=== PATIENT | male | born 1975 | race Caucasian/White ===

== ENCOUNTER 2018-05-17 13:53 | Emergency (ER) | payer OTHER ==
[~2018-05-17] VITALS: Ht 165.1 cm; Wt 81.2 kg
[~2018-05-17 13:53] MED LIST: ACET500T33 PO; IBUP-1227 PO; TAMAFLU
[2018-05-17] MEDS ORDERED: PRED20TA PO (14:18)
--- NOTE | 2018-05-17 14:19 | PHYS DOC ---
Past History Past Medical History: No Pertinent History, Other Past Surgical History: Appendectomy Smoking: Non-smoker Alcohol Use: Rarely Drug Use: None Adult General Chief Complaint Chief Complaint: SKIN PROBLEM HPI HPI Patient is a 42-year-old male who presents to the emergency department for evaluation. 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 He states he has tried multiple [id number] regimens without improvement in his symptoms. He has some mild involvement on his upper thighs and abdomen, but the primary site as his arms bilaterally. He denies any difficulty breathing, fevers, or chills. He has not had any significant improvement with his [id number] regimens. Review of Systems Review of Systems Constitutional: Denies fever or chills [] Eyes: Denies change in visual acuity, redness, or eye pain [] HENT: Denies nasal congestion or sore throat [] Respiratory: Denies cough or shortness of breath [] GI: Denies abdominal pain, nausea, vomiting, bloody stools or diarrhea [] : Denies dysuria or hematuria [] Musculoskeletal: Denies back pain or joint pain [] Neurologic: Denies headache, focal weakness or sensory changes [] Allergies Allergies Allergies Coded Allergies Type Severity Reaction Last Updated Verified cortisone acetate Allergy Nausea and Vomiting 08/23/13 Yes Physical Exam Physical Exam PHYSICAL EXAM: CONSTITUTIONAL: Well developed, well nourished HEAD: normocephalic, atraumatic EENT: PERRL, EOMI. Conjunctivae normal color, sclerae non-icteric; moist mucous membranes. NECK: Supple, non-tender; no meningismus. LUNGS: Lungs CTA, breathing even and unlabored. Normal air movement. HEART: Regular rate and rhythm, no murmur CHEST: No deformity; non-tender ABDOMEN: The abdomen is soft, and non-tender, no masses or bruits. EXTREM: Normal ROM; no deformity, no calf tenderness. Normal pulses palpable in all extremities. There is no pedal edema. SKIN: There is a vesicular papular rash on an erythematous base, scattered on the forearms and hands bilaterally. The rash is pruritic. There are a few very faint, minor lesions on the anterior abdomen on the upper thighs. There are no other skin lesions noted, no other rash; no diaphoresis NEURO: Alert; normal speech and cognition; CN's grossly intact; strength grossly intact without focal deficit. BACK: No CVA TTP. EKG EKG [] Radiology/Procedures Radiology/Procedures [] Dragon Disclaimer Dragon Disclaimer This electronic medical record was generated, in whole or in part, using a voice recognition dictation system. Departure Departure: Impression: Primary Impression: Poison sarah dermatitis Disposition: HOME, SELF-CARE Condition: STABLE Referrals: KRISTOPHER MAURICE MD (PCP) Patient Instructions: Poison Sarah Scripts Prednisone (PREDNISONE) 20 Mg Tablet 1 TAB PO DAILY, #1 TAB Prednisone 20 mg tablets Take 3 tablets daily for 7 days, Then take 2 tablets daily for 3 days, then take 1 tablet daily for 3 days, And then take one half tablet daily for 4 days. Then stop. Dispense a sufficient quantity of tablets. Prov: DENNIS BRYANT MD 05/17/18 DENNIS BRYANT MD May 17, 2018 14:19
[2018-05-17 14:30] VITALS: BP 165/83
== END 2018-05-17 14:30 | disposition home or self-care (01) ==
LOC: ER 13:53
DX: L23.7 Allergic contact dermatitis due to plants, except food (principal); Z88.8 Allergy status to other drugs, medicaments and biological substances
CPT/HCPCS: 99283

== ENCOUNTER 2018-05-30 11:53 | Emergency (ER) | payer SELFPAY ==
[~2018-05-30] VITALS: Ht 165.1 cm; Wt 81.2 kg
[~2018-05-30 11:53] MED LIST changes: +PRED20TA PO
[2018-05-30] MEDS ORDERED: IV NORMAL SALINE 1,000ML 1,000 ML IV ONE (12:00)
[2018-05-30] MEDS ORDERED: ONDANSETRON PF 4 MG/2 ML VIAL. IV ONE (12:00)
--- NOTE | 2018-05-30 12:10 | PHYS DOC ---
Past History Past Medical History: No Pertinent History, Other Past Surgical History: Appendectomy Smoking: Non-smoker Alcohol Use: None Drug Use: None Adult General Chief Complaint Chief Complaint: FLANK PAIN HPI HPI 42-year-old male presents with sudden onset of right flank and back pain. 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 Pain intensified over the next couple of minutes. The pain was significant enough that made the patient feel nauseous. He went into the bathroom to vomit but the pain spiked and brought him to his knees. Since then, the patient is become diaphoretic and continues to have pain in this area. He is still nauseated. He also states a right hand and lower arm numbness which she describes as a pins and needles tingling sensation. The patient never had pain like this before. He had a cardiac workup one year ago after having pneumonia. Patient denies a history of back problems or surgeries. He is generally healthy taking no daily medications. He denies chest pain or shortness of breath. He denies fever. Review of Systems Review of Systems Constitutional: Denies fever or chills [] Eyes: Denies change in visual acuity, redness, or eye pain [] HENT: Denies nasal congestion or sore throat [] Respiratory: Denies cough or shortness of breath [] Cardiovascular: No additional information not addressed in HPI [] GI: Nausea, vomiting. No bloody stools or diarrhea [] : Denies dysuria or hematuria [] Musculoskeletal: Right flank pain [] Integument: Denies rash or skin lesions [] Neurologic: Denies headache, focal weakness or sensory changes [] Endocrine: Denies polyuria or polydipsia [] All other systems were reviewed and found to be within normal limits, except as documented in this note. Allergies Allergies Allergies Coded Allergies Type Severity Reaction Last Updated Verified cortisone acetate Allergy Nausea and Vomiting 08/23/13 Yes Physical Exam Physical Exam Constitutional: Well developed, well nourished, moderate acute distress, non- toxic appearance. [] HENT: Normocephalic, atraumatic, bilateral external ears normal, oropharynx moist, no oral exudates, nose normal. [] Eyes: PERRLA, EOMI, conjunctiva normal, no discharge. [] Neck: Normal range of motion, no tenderness, supple, no stridor. [] Cardiovascular:Heart rate regular rhythm, no murmur [] Lungs & Thorax: Bilateral breath sounds clear to auscultation [] Abdomen: Bowel sounds normal, soft, no tenderness, no masses, no pulsatile masses. [] Skin: Warm, dry, no erythema, no rash. [] Back: Right sided CVA tenderness. [] Extremities: Decreased sensation to touch right arm below the elbow.[] Neurologic: Alert and oriented X 3, normal motor function, normal sensory function, no focal deficits noted. [] Psychologic: Affect normal, judgement normal, mood normal. [] EKG EKG Sinus rhythm, rate 68, no ST elevations or depressions.[] Radiology/Procedures Radiology/Procedures [] Impressions: Examination: CT of the abdomen and pelvis without contrast HISTORY: History of right flank pain COMPARISON: 09/20/2005 TECHNIQUE: Axial CT images of the abdomen pelvis were performed without contrast. Coronal and sagittal reformats are performed Exposure: One or more of the following individualized dose reduction techniques were utilized for this examination: 1. Automated exposure control 2. Adjustment of the mA and/or kV according to patient size 3. Use of iterative reconstruction technique FINDINGS: The bibasilar lungs are clear. No evidence of free air identified in the abdomen. The visualized liver, spleen, adrenals grossly appears unremarkable. The gallbladder is mildly distended. The stomach is mildly distended. The visualized pancreas grossly appears unremarkable. The small bowel is nondilated. Feces and gas noted in the colon. Urinary bladder is mildly distended. Mild right-sided hydronephrosis and hydroureter identified. 5 mm calculus identified at the right ureterovesical junction. Mild degenerative changes lumbar spine. IMPRESSION: 1. 5 mm calculus identified in the right ureterovesical junction causing mild right-sided hydronephrosis and hydroureter. Electronically signed by: Zach Napoles MD (05/30/2018 12:50 PM) [facility] DICTATED AND SIGNED BY: ZACH NAPOLES MD DATE: 05/30/18 [id number] CC: RISHABH VILLARREAL DO; KRISTOPHER MAURICE MD Course & Med Decision Making Course & Med Decision Making Pertinent Labs and Imaging studies reviewed. (See chart for details) The patient's labs are unremarkable. His urinalysis is negative for infection. His CT shows a 5 mm calculus at the right ureterovesicular junction. The patient required 2 mg of Dilaudid his pain under control. I will not attempt to convert him to oral pain medication with Zuni 7.5/325. I discussed the case with the urologist, Dr. Morales and he recommended Flomax and discharging the patient with pain medication. Patient is directed to call his office and make an appointment in case the stone does not pass in the next couple of days. Dragon Disclaimer Dragon Disclaimer This electronic medical record was generated, in whole or in part, using a voice recognition dictation system. Departure Departure: Referrals: KRISTOPHER MAURICE MD (PCP) Scripts Tamsulosin Hcl (FLOMAX) 0.4 Mg Cap.er.24h 1 CAP PO DAILY, #30 CAP 11 Refills Prov: RISHABH VILLARREAL DO 05/30/18 Hydrocodone Bit/Acetaminophen (NORCO 7.5-325 TABLET) 1 Each Tablet 0.5-1 TAB PO PRN Q6HRS PRN for PAIN, #10 TAB 0 Refills Prov: RISHABH VILLARREAL DO 05/30/18 RISHABH VILLARREAL DO May 30, 2018 12:09
[2018-05-30 12:15] LABS: BASO # 0.1 x10^3/uL (0.0-0.2); BASO % 1 % (0-3); EOS # 0.3 x10^3/uL (0.0-0.7); EOS % 3 % (0-3); HEMATOCRIT 53.1 % (39.0-53.0); HEMOGLOBIN 18.1 g/dL (13.0-17.5); LYMPH # 2.9 x10^3/uL (1.0-4.8); LYMPH % 28 % (24-48); MEAN CORPUSCULAR HEMOGLOBIN 30 pg (25-35); MEAN CORPUSCULAR HGB CONC 34 g/dL (31-37); MEAN CORPUSCULAR VOLUME 88 fL (79-100); MONO # 0.7 x10^3/uL (0.0-1.1); MONO % 7 % (0-9); NEUT # 6.3 x10^3uL (1.8-7.7); NEUT % 61 % (31-73); PLATELET COUNT 315 x10^3/uL (140-400); RED BLOOD COUNT 6.04 x10^6/uL (4.30-5.70); RED CELL DISTRIBUTION WIDTH 13.4 % (11.5-14.5); WHITE BLOOD COUNT 10.4 x10^3/uL (4.0-11.0)
[2018-05-30] MEDS ORDERED: HYDROmorphone PF 1 MG/ML DISP.SYRIN IV ONE ×2 (12:15→13:15)
[2018-05-30 12:26] LABS: ALBUMIN 4.2 g/dL (3.4-5.0); ALBUMIN/GLOBULIN RATIO 1.1 (1.0-1.7); CALCIUM 10.3 mg/dL (8.5-10.1); CREATININE 1.3 mg/dL (0.7-1.3); TOTAL BILIRUBIN 0.6 mg/dL (0.2-1.0); TOTAL PROTEIN 7.9 g/dL (6.4-8.2)
[2018-05-30] MEDS ORDERED: KETOROLAC 30 MG/ML VIAL. IV ONE (12:45)
--- NOTE | 2018-05-30 12:54 | RAD ---
Examination: CT of the abdomen and pelvis without contrast HISTORY: History of right flank pain COMPARISON: 09/20/2005 TECHNIQUE: Axial CT images of the abdomen pelvis were performed without contrast. Coronal and sagittal reformats are performed Exposure: One or more of the following individualized dose reduction techniques were utilized for this examination: 1. Automated exposure control 2. Adjustment of the mA and/or kV according to patient size 3. Use of iterative reconstruction technique FINDINGS: The bibasilar lungs are clear. No evidence of free air identified in the abdomen. The visualized liver, spleen, adrenals grossly appears unremarkable. The gallbladder is mildly distended. The stomach is mildly distended. The visualized pancreas grossly appears unremarkable. The small bowel is nondilated. Feces and gas noted in the colon. Urinary bladder is mildly distended. Mild right-sided hydronephrosis and hydroureter identified. 5 mm calculus identified at the right ureterovesical junction. Mild degenerative changes lumbar spine. IMPRESSION: 1. 5 mm calculus identified in the right ureterovesical junction causing mild right-sided hydronephrosis and hydroureter. Electronically signed by: Zach Napoles MD (05/30/2018 12:50 PM) [facility]
[2018-05-30 13:10] LABS: PLT ESTIMATE ADEQUATE (ADEQUATE)
[2018-05-30 13:20] LABS: BILIRUBIN,URINE NEG (NEG); CLARITY,URINE HAZY; COLOR,URINE AMBER; GLUCOSE,URINE NEG (NEG)
[2018-05-30 13:21] LABS: BACTERIA,URINE 0 /HPF (0-FEW); NITRITE,URINE NEG (NEG); SQUAMOUS EPITHELIAL CELL,UR OCC /LPF; UROBILINOGEN,URINE 0.2 mg/dL (0.2 mg/dL); WBC,URINE 0 /HPF (0-4)
[2018-05-30] MEDS ORDERED: HYDROcodone/APAP 7.5/325MG 1 TAB TABLET PO ONE (14:00)
[2018-05-30] MEDS ORDERED: HYDR-965 PO (14:24)
[2018-05-30 14:25] VITALS: BP 113/69
[2018-05-30] MEDS ORDERED: TAMS0.4C97 PO (14:27)
--- NOTE | 2018-05-30 18:23 | EKG ---
[address] [address] Test Date: 2018-05-30 Test Time: 12:06:49 Pat Name: AKBAR FREITAS Department: Room: Gender: M Chief Embalmer: : 1975 Requested By: RISHABH VILLARREAL Order Number: [id number] Reading MD: Patricio Angel MD Measurements Intervals [place] Rate: 68 P: 0 OK: 138 QRS: 33 QRSD: 88 T: 19 QT: 394 QTc: 419 Interpretive Statements SINUS RHYTHM Electronically Signed On 05-31-2018 14:01:49 CDT by Patricio Angel MD
== END 2018-05-30 14:50 | disposition home or self-care (01) ==
LOC: ER 11:53
DX: N13.2 Hydronephrosis with renal and ureteral calculous obstruction (principal); R11.2 Nausea with vomiting, unspecified; Z90.89 Acquired absence of other organs; Z88.8 Allergy status to other drugs, medicaments and biological substances
CPT/HCPCS: 36415; 74176; 80053; 81001; 82947; 85025; 93005; 96361; 96374; 96375; 96376; 99285; J1170; J1885; J2405; J7030

== ENCOUNTER 2021-08-14 23:46 | Emergency (ER) | payer OTHER ==
[~2021-08-14] VITALS: Ht 165.1 cm; Wt 80.0 kg
[~2021-08-14 23:46] MED LIST changes: +HYDR-3166 PO; -IBUP-1227 PO; +IBUP-1673 PO; +TAMS0.4C97 PO
--- NOTE | 2021-08-15 00:39 | PHYS DOC ---
Past History Past Medical History: No Pertinent History, Other Past Surgical History: Appendectomy Smoking: Non-smoker Alcohol Use: None Drug Use: None Adult General [facility] HPI Medicines today. Denies any recent traumas, travels, chest pain, shortness of breath, abdominal pain, nausea, vomiting, diarrhea, dysuria, hematuria or blood in the stool.Patient is a 45-year-old male, Covid positive symptomatic presents with a chief complaint of fever, body aches, fatigue and a cough. Review of Systems Review of Systems Review of systems otherwise unremarkable except noted in HPI Allergies Allergies Allergies Coded Allergies Type Severity Reaction Last Updated Verified cortisone acetate Allergy Unknown Nausea and Vomiting 08/14/21 Yes Physical Exam Physical Exam Constitutional: Well developed, well nourished, no acute distress, non-toxic appearance. [] HENT: Normocephalic, atraumatic, bilateral external ears normal, oropharynx moist, no oral exudates, nose normal. [] Eyes: conjunctiva normal, no discharge. [] Neck: Normal range of motion, no tenderness, supple, no stridor. [] Cardiovascular:Heart rate regular rhythm, no murmur [] Lungs & Thorax: Bilateral breath sounds clear to auscultation [] Abdomen: Bowel sounds normal, soft, no tenderness, no masses, no pulsatile masses. [] Skin: Warm, dry, no erythema, no rash. [] Back: No tenderness, no CVA tenderness. [] Extremities: No tenderness, no cyanosis, no clubbing, ROM intact, no edema. [] Neurologic: Alert and oriented X 3, normal motor function, normal sensory function, no focal deficits noted. [] Psychologic: Affect normal, judgement normal, mood normal. [] EKG EKG [] Radiology/Procedures Radiology/Procedures [] Heart Score C/O Chest Pain: No Risk Factors: Risk Factors: DM, Current or recent (<one month) smoker, HTN, HLP, family history of CAD, obesity. Risk Scores: Risk Factors: DM, Current or recent (<one month) smoker, HTN, HLP, family history of CAD, obesity. Course & Med Decision Making Course & Med Decision Making Patient is a Covid positive male who presents with multiple symptoms Vital signs notable for tachycardia and tachypnea. Physical exam noted above. Given medicines for symptom control. Chest x-ray suggestive of pneumonia. Started on antibiotics in the ED. Discussed all findings with patient. Advised on symptom management at home. Advised to follow-up in the morning with her primary care physician. Gave strict return precautions to the ED. Patient grateful, verbalized understanding and agreed with plan of discharge. [] Dragon Disclaimer Dragon Disclaimer This electronic medical record was generated, in whole or in part, using a voice recognition dictation system. Departure Departure: Impression: Primary Impression: Viral syndrome Disposition: HOME / SELF CARE / HOMELESS Condition: GOOD Referrals: JEREMÍAS RIVERA (PCP) Patient Instructions: Viral Syndrome Additional Instructions: You have been diagnosed with COVID-19. It is an infection caused by a new type of coronavirus. COVID-19 will cause cold-like or mild flu symptoms in most. It can cause more severe symptoms like problems breathing in some. There is no treatment for COVID-19. The body will clear the infection over time. Self-care will help to ease discomfort. Steps to Take: Self-Care Rest as needed. Healthy habits may help you feel better. Steps include: Choose healthy foods including fruits and vegetables. Drink water throughout the day. Get plenty of sleep each night. If you smoke, try to quit. It may ease breathing. Avoid alcohol. Keep Others Healthy The virus can spread to others. Droplets are released every time you sneeze or cough. The droplets can get into the mouth, nose, or eyes of people near you and lead to infection. To lower the chances of spreading COVID-19 to others: Stay at home until your doctor has said it is safe to leave. If you tested positive this will mean staying isolated until both of the following are true: At least 7 days have passed since the start of illness. You are free of fever for at least 72 hours without the use of medicine. During this time: - Avoid public areas, events, or transportation. Do not return to work or [employer] until your doctor has said it is safe to do so. - Call ahead if you need to go to a medical center. Let them know you may have COVID-19. It will help them guide you where to go. They may also ask you to wear a facemask when you come to the office. - If you call for emergency medical services, let them know you may have COVID- 19. While at home: - Try to avoid close contact with others. Stay about 6 feet away. - If possible, spend most of your time in a separate room from others. - Use a face mask if you will be in close contact with others such as sharing a room or vehicle. - Have someone wipe down common surfaces in the home. Use household online marketing manager every day on areas like doorknobs, counters, or sinks. - Cough or sneeze into a tissue. Throw the tissue away right after use. If a tissue is not available, cough or sneeze into your elbow. - Wash your hands often. Wash them after sneezing or coughing. Use soap and water and wash for at least 20 seconds. Alcohol based hand guide rail cleaner can be used if soap and water is not available. - Do not prepare food for others. Avoid sharing personal items like forks, spoons, or toothbrushes. - Avoid close contact with pets while you are sick. There is no evidence of the virus passing to pets. This is a safety step until more is known about this virus. Isolation can be frustrating. Social interaction can help. Keep in touch with friends and family through phone and tech options. You can still interact with others in your home, just keep a safe distance of about 6 feet. Follow-up: Your doctors office will check in with you to see if there are any changes in your health. You may be asked to keep track of symptoms to share with them. They will also let you know when you are clear to be in public again. Problems to Look Out For: Contact your doctor if your recovery is not going as you expect. Get emergency care if you have problems such as: - Trouble breathing - Nonstop chest pain or pressure - Changes in awareness, confusion, or problems waking - Lips or face have bluish color - Worsening of symptoms If you think you have an emergency, call for emergency medical services right away. [facility] taken [facility] [facility]KPATR[facility] MD Aug 15, 2021 00:39
[2021-08-15] MEDS ORDERED: guaiFENesin/CODEINE 100mg/10mg 5 ML LIQUID PO PRN (01:00)
[2021-08-15] MEDS ORDERED: IBUPROFEN 600 MG TABLET. PO ONE (01:00)
[2021-08-15] MEDS ORDERED: diphenhydrAMINE HCL 25 MG CAPSULE PO ONE (01:00)
[2021-08-15] MEDS ORDERED: ACETAMINOPHEN 500 MG TABLET PO ONE (01:00)
[2021-08-15] MEDS ORDERED: LEVO500T9 PO (01:52)
[2021-08-15 02:15] VITALS: BP 132/81
[2021-08-15] MEDS ORDERED: levoFLOXacin 500 MG TABLET PO ONE (02:30)
--- NOTE | 2021-08-15 02:52 | RAD ---
XR CHEST 1V INDICATION: Reason: cough, covid + / Spl. Instructions: / History: . COMPARISON STUDY: None. FINDINGS: Lungs: Low lung volume. No pulmonary mass or consolidation. The tracheobronchial tree and hilar struc tures are normal. Pleura: No pleural effusion or pneumothorax. Heart and Mediastinum: The cardiomediastinal silhouette is normal. The great vessels of the thorax ar e normal. IMPRESSION: No consolidation. Electronically signed by: Sebastian Almaguer MD (08/15/2021 2:49 AM) [facility]
== END 2021-08-15 02:25 | disposition home or self-care (01) ==
LOC: ER 23:46
DX: U07.1 COVID-19 (principal); B34.9 Viral infection, unspecified; Z88.8 Allergy status to other drugs, medicaments and biological substances
CPT/HCPCS: 71045; 99284; Q0163

== ENCOUNTER 2021-08-17 01:04 | Emergency (ER) | payer OTHER ==
[~2021-08-17] VITALS: Ht 165.1 cm; Wt 80.0 kg
[~2021-08-17 01:04] MED LIST changes: +LEVO500T9 PO
--- NOTE | 2021-08-17 01:13 | PHYS DOC ---
Past History Past Medical History: No Pertinent History, Other (KALYAN CHAPPELL MD) Past Surgical History: Appendectomy, Cholecystectomy, Other Additional Past Surgical Histo: kidney stone removal (KALYAN CHAPPELL MD) Smoking: Non-smoker Alcohol Use: None Drug Use: None (KALYAN CHAPPELL MD) General Adult HPI: HPI: ".. I got up to go to bathroom.. and when I went back I got dizzy and fell.. I did have some visual changes.. like things floating across.. but it would go away. .. and come back.. it was in both eyes.. I was diagnosis of COVID a few days ago.. been having really high fevers.. I been seeing Dr. Rand Cunningham.. she put me on some breathing treatments.. I was here 2 days ago .. they started me on some antibiotics...".. " I got my flu vaccination.. just did not think I needed the COVID vaccination.. ".. " To day.. I ve had this headache.. " Patient is a 45 year old male who presents with above hx and complaints decreased vision and near syncope after going to the bathroom. Diagnosis of COVID on . Follows with Dr. Reza. Pt. visual acuity 20/40 Lt, 20/50 Rt. , 20/40 both without glasses. No obvious field defect. Some floater noted, but fundus relatively benign. Extraocular muscles intact. (KALYAN CHAPPELL MD) Review of Systems: Review of Systems: Constitutional: Complaints of fever or chills Eyes: Denies change in visual acuity HENT: Complains of nasal congestion and sore throat Respiratory: Complaints of cough or shortness of breath Cardiovascular: Denies chest pain or edema GI: Denies abdominal pain, vomiting, bloody stools or diarrhea . Complaints of nausea : Denies dysuria Musculoskeletal: Complains of myalgia arthralgia and malaise Integument: Denies rash Neurologic: Complains of frontal headache, focal weakness or sensory changes. Complains of generalized weakness and fatigue Endocrine: Denies polyuria or polydipsia Lymphatic: Denies swollen glands Psychiatric: Denies depression or anxiety (KALYAN CHAPPELL MD) Family History: Family History: Noncontributory to presentation (KALYAN CHAPPELL MD) Current Medications: Current Meds: See nursing for home meds (KALYAN CHAPPELL MD) Allergies: Allergies: Allergies Coded Allergies Type Severity Reaction Last Updated Verified cortisone acetate Allergy Unknown Nausea and Vomiting 08/14/21 Yes (KALYAN CHAPPELL MD) Physical Exam: PE: Constitutional: Moderate acute distress, non-toxic appearance. [] HENT: Normocephalic, atraumatic, bilateral external ears normal, oropharynx moist, postnasal drainage and mild injection pharynx no oral exudates, nose swollen turbinates clear rhinorrhea tenderness over maxillary and frontal sinuses on percussion. Eyes: PERRLA, EOMI, conjunctiva normal, no discharge. Fundi exam somewhat limited but no obvious bleed or swelling optic disc. No field deficits appreciated. Did appreciate a few floaters Neck: Normal range of motion, no tenderness, supple, no stridor. Cardiovascular: Tachycardia heart rate regular rhythm, no murmur [] Lungs & Thorax: Bilateral breath sounds equal apex with scattered wheezes on auscultation [] Abdomen: Bowel sounds hyperactive, soft, no tenderness, no masses, no pulsatile masses. Old surgery scars. Skin: Warm, dry, no erythema, no rash. [] Back: No tenderness, no CVA tenderness. [] Extremities: No tenderness, no cyanosis, no clubbing, ROM intact, no edema. [No cording appreciated Neurologic: Alert and oriented X 3, normal motor function, normal sensory function, no focal deficits noted. [] Psychologic: Affect anxious, judgement normal, mood normal. [] (KALYAN CHAPPELL MD) EKG: EKG: My interpretation EKG shows a sinus tachycardia 106 bpm. No findings of acute STEMI of contralateral changes. Time of EKG is 0459 hrs. [] (KALYAN CHAPPELL MD) Radiology/Procedures: Radiology/Procedures: [address] [address] IMAGING REPORT Signed PATIENT: AKBAR FREITAS ACCOUNT: [id number] : 1975 LOCATION: ER AGE: 45 SEX: M EXAM STATUS: REG ER ORD. PHYSICIAN: KALYAN CHAPPELL MD REASON: dyspnea, COvid PROCEDURE: PORTABLE CHEST 1V Study: XR CHEST 1V Indication: Dyspnea. Covid. Comparison: 08/15/2021 Findings: Increasing infiltrates with a basilar predilection. No pleural effusion or pneumothorax. Within normal limits cardiomediastinal silhouette. Low lung volumes with a component of atelectasis. Impression: Increasing airspace infiltrates from the 08/15/2021 comparison likely an atypical/viral pneumonia. Electronically signed by: JOSELIN PARMAR MD (08/17/2021 7:28 AM) [id number] DICTATED AND SIGNED BY: JOSELIN PARMAR MD DATE: 08/17/21726 CC: KALYAN CHAPPELL MD; JEREMÍAS REZA ~MTH0 0 [][address] [address] IMAGING REPORT Signed PATIENT: AKBAR FREITAS ACCOUNT: [id number] : 1975 LOCATION: ER AGE: 45 SEX: M EXAM STATUS: REG ER ORD. PHYSICIAN: KALYAN CHAPPELL MD REASON: dizzy, near syncope, daniels, visual changes. PROCEDURE: CT HEAD WO CONTRAST STUDY: CT head without contrast INDICATION: Dizziness. Near syncope. Headache. Visual changes. COMPARISON: None. TECHNIQUE: Axial CT imaging through the head without the use of intravenous contrast. Sagittal and coronal reformats were obtained. One or more of the following individualized dose reduction techniques were utilized for this examination: 1. Automated exposure control 2. Adjustment of the mA and/or kV according to patient size 3. Use of iterative reconstruction technique. FINDINGS: No acute intracranial hemorrhage. No mass effect, midline shift or hydrocephalus. Shannon-white matter differentiation is maintained. Intact calvarium. Mucosal thickening and fluid within both maxillary sinuses. Mucosal thickening involving the ethmoidal air cells and sphenoid sinus. IMPRESSION: 1. No acute intracranial abnormality by CT. 2. Paranasal sinus mucosal thickening and fluid within the maxillary sinuses which could indicate active sinusitis. Correlate with patient's symptoms. Electronically signed by: JOSELIN PARMAR MD (08/17/2021 7:31 AM) [id number] DICTATED AND SIGNED BY: JOSELIN PARMAR MD DATE: 08/17/21728 CC: KALYAN CHAPPELL MD; JEREMÍAS REZA ~[facility] 0 (KALYAN CHAPPELL MD) Impressions: STUDY: CT head without contrast INDICATION: Dizziness. Near syncope. Headache. Visual changes. COMPARISON: None. TECHNIQUE: Axial CT imaging through the head without the use of intravenous contrast. Sagittal and coronal reformats were obtained. One or more of the following individualized dose reduction techniques were utilized for this examination: 1. Automated exposure control 2. Adjustment of the mA and/or kV according to patient size 3. Use of iterative reconstruction technique. FINDINGS: No acute intracranial hemorrhage. No mass effect, midline shift or hydrocephalus. Shannon-white matter differentiation is maintained. Intact calvarium. Mucosal thickening and fluid within both maxillary sinuses. Mucosal thickening involving the ethmoidal air cells and sphenoid sinus. IMPRESSION: 1. No acute intracranial abnormality by CT. 2. Paranasal sinus mucosal thickening and fluid within the maxillary sinuses which could indicate active sinusitis. Correlate with patient's symptoms. Electronically signed by: JOSELIN PARMAR MD (08/17/2021 7:31 AM) [id number] DICTATED AND SIGNED BY: JOSELIN PARMAR MD DATE: 08/17/21728 CC: KALYAN CHAPPELL MD; JEREMÍAS REZA ~[facility]0 0 Study: CT CHEST WITH CONTRAST - PULMONARY ANGIOGRAM History: Dyspnea. Covid. Comparison: No prior chest CT. Technique: Helical CT of the chest performed after the administration of 100 cc Omnipaque 350 intravenous contrast and timed for angiographic evaluation of the pulmonary arteries per PE protocol. Coronal and sagittal 3D MIP reformations were obtained. One or more of the following individualized dose reduction techniques were utilized for this examination: 1. Automated exposure control 2. Adjustment of the mA and/or kV according to patient size 3. Use of iterative reconstruction technique. Findings: Pulmonary Arteries: No main, lobar or segmental pulmonary embolism. Heart/Systemic Vasculature: No aortic aneurysm or dissection. Patent visualized great vessels. Mediastinum: No lymphadenopathy by size criteria. Lungs: Multifocal airspace infiltrates much of which are groundglass and peripherally distributed. Superimposed atelectasis at the lower lungs. Patent central airways. No pleural effusion. Neck/Axilla/Body Wall: No significant finding. Upper Abdomen: Well-formed stool throughout the visualized colon. Bones: No acute or aggressive abnormality. Mild scattered degenerative/chronic findings. Miscellaneous: None. IMPRESSION: 1. No main, lobar or segmental pulmonary embolism. 2. Bilateral airspace infiltrates with a distribution often seen with an atypical/viral pneumonia. Electronically signed by: JOSELIN PARMAR MD (08/17/2021 7:36 AM) [id number] DICTATED AND SIGNED BY: JOSELIN PARMAR MD DATE: 08/17/21730 CC: KALYAN CHAPPELL MD; JEREMÍAS REZA ~MTH0 0 (RISHABH VILLARREAL DO) Heart Score: C/O Chest Pain: Yes HEART Score for Chest Pain: HEART Score for Chest Pain Response (Comments) Value History Slighlty/Non-Suspicious 0 ECG Normal 0 Age >45 - < 65 1 Risk Factors 1 or 2 Risk Factors 1 Troponin < Normal Limit 0 Total 2 Risk Factors: Risk Factors: DM, Current or recent (<one month) smoker, HTN, HLP, family history of CAD, obesity. Risk Scores: Score 0 - 3: 2.5% MACE over next 6 weeks - Discharge Home Score 4 - 6: 20.3% MACE over next 6 weeks - Admit for Clinical Observation Score 7 - 10: 72.7% MACE over next 6 weeks - Early Invasive Strategies (KALYAN CHAPPELL MD) C/O Chest Pain: N/A (RISHABH VILLARREAL DO) Course & Med Decision Making: Course & Med Decision Making Pertinent Labs and Imaging studies reviewed. (See chart for details) Continue with Zithromax 250-day. Continue MDI 2 puffs 4 times a day. Practice incentive spirometry. Follow-up primary care. Monitor oxygen saturations. Must get adequate hydration. Follow-up ophthalmology of choice call in morning for follow-up. [] Patient endorsed to Dr. Villarreal at shift change. CT pending at shift change. Impression: 1. Viral syndrome-Covid infection 2. Covid pneumonia-(overall infiltrates worse on x-ray today 3. Near syncope 4. Complaints of vision changes 5. Sinusitis- maxillar (KALYAN CHAPPELL MD) Course & Med Decision Making The patient's labs are unremarkable. His urinalysis is negative for infection. The chest x-ray shows worsening bilateral infiltrates consistent with COVID-19. CT of the head is negative for hemorrhage. CT angiogram of the chest shows no pulmonary embolus but also shows bilateral infiltrates consistent with Covid. The patient is maintaining 92% or better oxygen saturation on room air. Heart rate is normal and blood pressure is normal. The patient is already on appropriate treatments from his PCP. He is stable for discharge at this time. (RISHABH VILLARREAL DO) Dragon Disclaimer: Dragon Disclaimer: This electronic medical record was generated, in whole or in part, using a voice recognition dictation system. (KALYAN CHAPPELL MD) Departure Departure: Impression: Primary Impression: Pneumonia due to COVID-19 virus Disposition: HOME / SELF CARE / HOMELESS Condition: STABLE Referrals: JEREMÍAS REZA (PCP) Additional Instructions: You have been tested for or diagnosed with COVID-19. It is an infection caused by a new type of coronavirus. COVID-19 will cause cold-like or mild flu symptoms in most. It can cause more severe symptoms like problems breathing in some. There is no treatment for COVID-19. The body will clear the infection over time. Self-care will help to ease discomfort. Steps to Take: Self-Care Rest as needed. Healthy habits may help you feel better. Steps include: Choose healthy foods including fruits and vegetables. Drink water throughout the day. Get plenty of sleep each night. If you smoke, try to quit. It may ease breathing. Avoid alcohol. Keep Others Healthy The virus can spread to others. Droplets are released every time you sneeze or cough. The droplets can get into the mouth, nose, or eyes of people near you and lead to infection. To lower the chances of spreading COVID-19 to others: Stay at home until your doctor has said it is safe to leave. If you tested positive this will mean staying isolated until both of the following are true: At least 7 days have passed since the start of illness. You are free of fever for at least 72 hours without the use of medicine. During this time: - Avoid public areas, events, or transportation. Do not return to work or school until your doctor has said it is safe to do so. - Call ahead if you need to go to a medical center. Let them know you may have COVID-19. It will help them guide you where to go. They may also ask you to wear a facemask when you come to the office. - If you call for emergency medical services, let them know you may have COVID- 19. While at home: - Try to avoid close contact with others. Stay about 6 feet away. - If possible, spend most of your time in a separate room from others. - Use a face mask if you will be in close contact with others such as sharing a room or vehicle. - Have someone wipe down common surfaces in the home. Use household certified nuclear medicine technologist every day on areas like doorknobs, counters, or sinks. - Cough or sneeze into a tissue. Throw the tissue away right after use. If a tissue is not available, cough or sneeze into your elbow. - Wash your hands often. Wash them after sneezing or coughing. Use soap and water and wash for at least 20 seconds. Alcohol based hand furniture cleaner can be used if soap and water is not available. - Do not prepare food for others. Avoid sharing personal items like forks, spoons, or toothbrushes. - Avoid close contact with pets while you are sick. There is no evidence of the virus passing to pets. This is a safety step until more is known about this virus. Isolation can be frustrating. Social interaction can help. Keep in touch with friends and family through phone and tech options. You can still interact with others in your home, just keep a safe distance of about 6 feet. Follow-up: Your doctors office will check in with you to see if there are any changes in your health. You may be asked to keep track of symptoms to share with them. They will also let you know when you are clear to be in public again. Problems to Look Out For: Contact your doctor if your recovery is not going as you expect. Get emergency care if you have problems such as: - Trouble breathing - Nonstop chest pain or pressure - Changes in awareness, confusion, or problems waking - Lips or face have bluish color - Worsening of symptoms If you think you have an emergency, call for emergency medical services right aw ay. As taken from [employer] Disclaimer This chart was dictated in whole or in part using Voice Recognition software in a busy, high-work load, and often noisy Emergency Department environment. It may contain unintended and wholly unrecognized errors or omissions. (KALYAN CHAPPELL MD) KALYAN CHAPPELL MD Aug 17, 2021 01:13 RISHABH VILLARREAL DO Aug 17, 2021 08:26
[2021-08-17] MEDS ORDERED: CONTRAST GIVEN. MC PRN (04:45)
[2021-08-17] MEDS ORDERED: IOHEXOL 350 MG/ML 100 ML VIAL. IV ONE (05:00)
[2021-08-17] MEDS ORDERED: IV RINGERS SOLUTION,LACTATED 1,000 ML IV SCH (05:00)
[2021-08-17] MEDS ORDERED: IBUPROFEN 800 MG TABLET. PO ONE (05:39)
[2021-08-17] MEDS ORDERED: ACETAMINOPHEN 500 MG TABLET PO ONE ×2 (05:39→06:00)
--- NOTE | 2021-08-17 05:53 | EKG ---
[address] [address] Test Date: 2021-08-17 Test Time: 04:59:08 Pat Name: AKBAR FREITAS Department: Room: Gender: M Programming Internship: : 1975 Requested By: KALYAN CHAPPELL Order Number: [id number] Reading MD: Measurements Intervals [place] Rate: 106 P: 26 DC: 164 QRS: 22 QRSD: 88 T: 24 QT: 314 QTc: 419 Interpretive Statements SINUS TACHYCARDIA OTHERWISE NORMAL ECG RI6.02 No previous ECG available for comparison
[2021-08-17] MEDS ORDERED: IBUPROFEN 400 MG TABLET. PO ONE (06:00)
[2021-08-17 06:22] LABS: BASO % 0 % (0-3); EOS % 0 % (0-3); HEMATOCRIT 46.5 % (39.0-53.0); HEMOGLOBIN 15.4 g/dL (13.0-17.5); LYMPH # 0.3 x10^3/uL (1.0-4.8); LYMPH % 3 % (24-48); MEAN CORPUSCULAR HEMOGLOBIN 29 pg (25-35); MEAN CORPUSCULAR HGB CONC 33 g/dL (31-37); MEAN CORPUSCULAR VOLUME 89 fL (79-100); MONO # 0.4 x10^3/uL (0.0-1.1); MONO % 4 % (0-9); NEUT # 7.6 x10^3uL (1.8-7.7); NEUT % 92 % (31-73); PLATELET COUNT 175 x10^3/uL (140-400); RED BLOOD COUNT 5.26 x10^6/uL (4.30-5.70); RED CELL DISTRIBUTION WIDTH 14.3 % (11.5-14.5); WHITE BLOOD COUNT 8.2 x10^3/uL (4.0-11.0)
[2021-08-17 06:26] LABS: BARBITURATES NEG (NEG); BENZODIAZEPINES NEG (NEG); CANNABINOIDS NEG (NEG); COCAINE NEG (NEG); METHADONE NEG (NEG); OPIATES POS (NEG); PHENCYCLIDINE NEG (NEG)
[2021-08-17 06:28] LABS: AMPHETAMINE/METHAMPHETAMINE NEG (NEG)
[2021-08-17 06:43] LABS: CALCIUM 8.7 mg/dL (8.5-10.1); CREATININE 1.3 mg/dL (0.7-1.3); GFR 59.2; POTASSIUM 4.1 mmol/L (3.5-5.1)
[2021-08-17 06:45] LABS: BACTERIA,URINE 0 /HPF (0-FEW); BILIRUBIN,URINE NEG (NEG); CLARITY,URINE HAZY; COLOR,URINE YELLOW; GLUCOSE,URINE NEG (NEG); NITRITE,URINE NEG (NEG); UROBILINOGEN,URINE 0.2 mg/dL (0.2 mg/dL); WBC,URINE OCC /HPF (0-4)
[2021-08-17 06:46] LABS: SQUAMOUS EPITHELIAL CELL,UR OCC /LPF
[2021-08-17 06:53] LABS: ALBUMIN 3.6 g/dL (3.4-5.0); DIRECT BILIRUBIN 0.1 mg/dL (0.0-0.2); MAGNESIUM 2.1 mg/dL (1.8-2.4); TOTAL BILIRUBIN 0.4 mg/dL (0.2-1.0); TOTAL PROTEIN 6.8 g/dL (6.4-8.2)
--- NOTE | 2021-08-17 07:31 | RAD ---
Study: XR CHEST 1V Indication: Dyspnea. Covid. Comparison: 08/15/2021 Findings: Increasing infiltrates with a basilar predilection. No pleural effusion or pneumothorax. Within rogelio l limits cardiomediastinal silhouette. Low lung volumes with a component of atelectasis. Impression: Increasing airspace infiltrates from the 08/15/2021 comparison likely an atypical/viral pneumonia. Electronically signed by: JOSELIN PARMAR MD (08/17/2021 7:28 AM) [id number]
--- NOTE | 2021-08-17 07:33 | RAD ---
STUDY: CT head without contrast INDICATION: Dizziness. Near syncope. Headache. Visual changes. COMPARISON: None. TECHNIQUE: Axial CT imaging through the head without the use of intravenous contrast. Sagittal and co reyna reformats were obtained. One or more of the following individualized dose reduction techniques were utilized for this examinat ion: 1. Automated exposure control 2. Adjustment of the mA and/or kV according to patient size 3. Use of iterative reconstruction technique. FINDINGS: No acute intracranial hemorrhage. No mass effect, midline shift or hydrocephalus. Shannon-white matter d ifferentiation is maintained. Intact calvarium. Mucosal thickening and fluid within both maxillary sinuses. Mucosal thickening invo lving the ethmoidal air cells and sphenoid sinus. IMPRESSION: 1. No acute intracranial abnormality by CT. 2. Paranasal sinus mucosal thickening and fluid within the maxillary sinuses which could indicate ac tive sinusitis. Correlate with patient's symptoms. Electronically signed by: JOSELIN PARMAR MD (08/17/2021 7:31 AM) [id number]
--- NOTE | 2021-08-17 07:38 | RAD ---
Study: CT CHEST WITH CONTRAST - PULMONARY ANGIOGRAM History: Dyspnea. Covid. Comparison: No prior chest CT. Technique: Helical CT of the chest performed after the administration of 100 cc Omnipaque 350 intrav enous contrast and timed for angiographic evaluation of the pulmonary arteries per PE protocol. Coron al and sagittal 3D MIP reformations were obtained. One or more of the following individualized dose reduction techniques were utilized for this examinat ion: 1. Automated exposure control 2. Adjustment of the mA and/or kV according to patient size 3. Use of iterative reconstruction technique. Findings: Pulmonary Arteries: No main, lobar or segmental pulmonary embolism. Heart/Systemic Vasculature: No aortic aneurysm or dissection. Patent visualized great vessels. Mediastinum: No lymphadenopathy by size criteria. Lungs: Multifocal airspace infiltrates much of which are groundglass and peripherally distributed. Godwin perimposed atelectasis at the lower lungs. Patent central airways. No pleural effusion. Neck/Axilla/Body Wall: No significant finding. Upper Abdomen: Well-formed stool throughout the visualized colon. Bones: No acute or aggressive abnormality. Mild scattered degenerative/chronic findings. Miscellaneous: None. IMPRESSION: 1. No main, lobar or segmental pulmonary embolism. 2. Bilateral airspace infiltrates with a distribution often seen with an atypical/viral pneumonia. Electronically signed by: JOSELIN PARMAR MD (08/17/2021 7:36 AM) [id number]
[2021-08-17 08:32] VITALS: BP 116/72
== END 2021-08-17 08:41 | disposition home or self-care (01) ==
LOC: ER 01:04
DX: U07.1 COVID-19 (principal); J12.82 Pneumonia due to coronavirus disease 2019; B34.9 Viral infection, unspecified; R55 Syncope and collapse; J32.9 Chronic sinusitis, unspecified; Z87.442 Personal history of urinary calculi; Z88.8 Allergy status to other drugs, medicaments and biological substances
CPT/HCPCS: 36415; 70450; 71045; 71275; 80048; 80076; 80307; 81001; 82550; 83690; 83735; 83880; 84443; 84484; 85025; 85379; 85610; 85730; 93005; 96360; 99285; J7120; Q9967

== ENCOUNTER 2021-08-18 23:11 | Emergency (ER) | payer OTHER ==
[~2021-08-18] VITALS: Ht 165.1 cm; Wt 95.2 kg
--- NOTE | 2021-08-18 23:19 | PHYS DOC ---
Past History Past Medical History: No Pertinent History, Other (KALYAN CHAPPELL MD) Past Surgical History: Appendectomy, Cholecystectomy, Other Additional Past Surgical Histo: kidney stone removal (KALYAN CHAPPELL MD) Smoking: Non-smoker Alcohol Use: None Drug Use: None (KALYAN CHAPPELL MD) General Adult EDM: Chief Complaint: DYSPNEA/RESPIRATOY DISTRESS HPI: HPI: ". ..I was here.. the other day.. for my COVID.. but I am not better. I went to seem my Doctor and they put me on Vit D3, 50,000 iu for 10 days, then Zinic 50 for 10 days, Vit. C 2000 IU twice a day for 10 days, NAC 500 twice a day... took me off Zithromax and put me on Doxycycline.. and Aspirin, Advir.. and Prednisone 20 daily... ".. " I am no better..worse.." Patient is a 45 year old male who presents with above hx and complaints hypoxia and Covid pneumonia. Patient does not have oxygen at home. Was seen here on 1218 for Covid pneumonia. Since that time has followed with his doctor with several changes and baseline medications. Patient has past medical history of kidney stones, appendectomy, cholecystectomy, sinusitis. Patient does not smoke. Patient denies illicit drugs. Patient denies any recent travel. Patient did get flu vaccination this season. Patient did not get COVID vaccination because he felt it was not needed. (KALYAN CHAPPELL MD) Review of Systems: Review of Systems: Constitutional: Complains of fever or chills Eyes: Denies change in visual acuity HENT: Complains of nasal congestion or sore throat Respiratory: Complains of cough and shortness of breath Cardiovascular: Denies chest pain or edema GI: Complains of nausea,. Denies vomiting, bloody stools or diarrhea : Denies dysuria Musculoskeletal: Denies back pain or joint pain Integument: Denies rash Neurologic: Denies headache, focal weakness or sensory changes Endocrine: Denies polyuria or polydipsia Lymphatic: Denies swollen glands Psychiatric: Complains of anxiety (KALYAN CHAPPELL MD) Family History: Family History: Noncontributory to presentation (KALYAN CHAPPELL MD) Current Medications: Current Meds: See nursing for home meds (KALYAN CHAPPELL MD) Allergies: Allergies: Allergies Coded Allergies Type Severity Reaction Last Updated Verified cortisone acetate Allergy Unknown Nausea and Vomiting 08/14/21 Yes (KALYAN CHAPPELL MD) Physical Exam: PE: Constitutional: In moderate acute distress, non-toxic appearance. [] HENT: Normocephalic, atraumatic, bilateral external ears normal, oropharynx moist, no oral exudates, nose swollen turbinates and rhinorrhea. Eyes: PERRLA, EOMI, conjunctiva normal, no discharge. [] Patient reports previous episodes of visual changes have cleared. Neck: Normal range of motion, no tenderness, supple, no stridor. [] Cardiovascular: Tachycardia heart rate regular rhythm, no murmur [] Lungs & Thorax: Bilateral breath sounds equal apex with scattered wheezes and basilar crackles on auscultation [] Abdomen: Bowel sounds normal, soft, no tenderness, no masses, no pulsatile masses. Old surgery scars Skin: Warm, dry, no erythema, no rash. Multiple tattoos Back: No tenderness, no CVA tenderness. [] Extremities: No tenderness, no cyanosis, no clubbing, ROM intact, no edema. No cording appreciated Neurologic: Alert and oriented X 3, moves all extremities on request, has distal sensory, no focal deficits noted. [] Psychologic: Affect anxious, judgement normal, mood normal. [] (KALYAN CHAPPELL MD) EKG: EKG: My interpretation EKG shows a sinus tachycardia 103 bpm. No findings of acute STEMI with contralateral changes. Time of EKG is 2324 hrs. [] (KALYAN CHAPPELL MD) Radiology/Procedures: Radiology/Procedures: [][address] [address] IMAGING REPORT Signed PATIENT: AKBAR FREITAS ACCOUNT: [id number] : 1975 LOCATION: ER AGE: 45 SEX: M EXAM STATUS: REG ER ORD. PHYSICIAN: KALYAN CHAPPELL MD REASON: COVID pneumonia PROCEDURE: PORTABLE CHEST 1V EXAM: CHEST ONE VIEW. HISTORY: Pneumonia. COVID-19. COMPARISON: 08/17/2021. FINDINGS: A frontal view of the chest is obtained. The inspiration is small. Patchy bilateral airspace infiltrates have progressed mildly since the prior study. There is no pneumothorax or pleural effusion. The heart is not enlarged. IMPRESSION: 1. Multifocal bilateral infiltrates have progressed mildly. Electronically signed by: Sugar Carlson MD (08/19/2021 4:52 AM) [id number] DICTATED AND SIGNED BY: EZEKIEL CARLSON MD DATE: 08/19/21 045 CC: KALYAN CHAPPELL MD; JEREMÍAS RIVERA ~MTH0 0 (KALYAN CHAPPELL MD) Heart Score: C/O Chest Pain: N/A Risk Factors: Risk Factors: DM, Current or recent (<one month) smoker, HTN, HLP, family history of CAD, obesity. Risk Scores: Score 0 - 3: 2.5% MACE over next 6 weeks - Discharge Home Score 4 - 6: 20.3% MACE over next 6 weeks - Admit for Clinical Observation Score 7 - 10: 72.7% MACE over next 6 weeks - Early Invasive Strategies (KALYAN CHAPPELL MD) Course & Med Decision Making: Course & Med Decision Making Pertinent Labs and Imaging studies reviewed. (See chart for details) Patient currently hypoxic on room air with a pH 7.5, CO2 27, O2 51, bicarb 21. Patient requiring between 4 to 6 L per nasal cannula to maintain saturations above 90%. Pt. not currently a candidate for Remdesivir- per hospital policy- does not meet the 10 day requirement. Noted in ED hold- had episodes of unremittent second-degree block type II. See EKG strips Admit - Dr. Vasques Endorsed to Dr. Villarreal at shift change pending hospital bed placed- Nursing shortage. Plan cardiology consult. Will start on Eliquis check and continue Zithromax, Ventolin tx.'s and push incentive spirometry.. Will hold off on Bipap at this time. Critical care 90 min. Impression: 1. Respiratory Failure - Hypoxia 2. COVID- Dx. 08/14 3. COVID Pneumonia [] (KALYAN CHAPPELL MD) Course & Med Decision Making Patient's condition worsened and he required 10 L of oxygen by nonrebreather. Patient was transferred [facility] by ambulance. (RISHABH VILLARREAL DO) Dragon Disclaimer: Dragon Disclaimer: This electronic medical record was generated, in whole or in part, using a voice recognition dictation system. (KALYAN CHAPPELL MD) Departure Departure: Impression: Primary Impression: COVID-19 Disposition: 02 [facility] Admitting Physician: William Vasques (RISHABH VILLARREAL DO) Condition: GUARDED Referrals: JEREMÍAS RIVERA (PCP) Dragon Disclaimer This chart was dictated in whole or in part using Voice Recognition software in a busy, high-work load, and often noisy Emergency Department environment. It m ay contain unintended and wholly unrecognized errors or omissions. (KALYAN CHAPPELL MD) Dragon Disclaimer This chart was dictated in whole or in part using Voice Recognition software in a busy, high-work load, and often noisy Emergency Department environment. It may contain unintended and wholly unrecognized errors or omissions. (KALYAN CHAPPELL MD) Dragon Disclaimer This chart was dictated in whole or in part using Voice Recognition software in a busy, high-work load, and often noisy Emergency Department environment. It may contain unintended and wholly unrecognized errors or omissions. (KALYAN CHAPPELL MD) KALYAN CHAPPELL MD Aug 18, 2021 23:19 RISHABH VILLARREAL DO Aug 19, 2021 16:08
[2021-08-18] MEDS ORDERED: ANTI-COAG MONITOR BY PHARMACY. MC PRN (23:45)
[2021-08-19] MEDS ORDERED: ASPIRIN CHEWABLE 81 MG TABLET. PO ONE
[2021-08-19] MEDS ORDERED: ONDANSETRON PF 4 MG/2 ML VIAL. IVP PRN
[2021-08-19] MEDS ORDERED: IV RINGERS SOLUTION,LACTATED 1,000 ML IV SCH
[2021-08-19] MEDS ORDERED: ACETAMINOPHEN 325 MG TABLET PO PRN
[2021-08-19 00:13] LABS: BGAS PH 7.5 (7.35-7.46)
--- NOTE | 2021-08-19 00:29 | EKG ---
[address] [address] Test Date: 2021-08-18 Test Time: 23:24:07 Pat Name: AKBAR FREITAS Department: Room: Gender: M [employer] Well[employer] Coordinator: : 1975 Requested By: KALYAN CHAPPELL Order Number: [id number] Reading MD: Measurements Intervals [place] Rate: 103 P: 0 MS: 146 QRS: 15 QRSD: 88 T: 43 QT: 314 QTc: 413 Interpretive Statements SINUS TACHYCARDIA OTHERWISE NORMAL ECG RI6.02 No previous ECG available for comparison
[2021-08-19] MEDS ORDERED: AZITHROMYCIN 250 MG TABLET. PO ONE (00:30)
[2021-08-19 00:36] LABS: BASO % 0 % (0-3); EOS % 0 % (0-3); HEMOGLOBIN 15.6 g/dL (13.0-17.5); LYMPH # 0.2 x10^3/uL (1.0-4.8); LYMPH % 2 % (24-48); MEAN CORPUSCULAR HEMOGLOBIN 30 pg (25-35); MEAN CORPUSCULAR HGB CONC 34 g/dL (31-37); MEAN CORPUSCULAR VOLUME 88 fL (79-100); MONO # 0.4 x10^3/uL (0.0-1.1); MONO % 4 % (0-9); NEUT # 8.7 x10^3uL (1.8-7.7); NEUT % 94 % (31-73); PLATELET COUNT 178 x10^3/uL (140-400); RED BLOOD COUNT 5.26 x10^6/uL (4.30-5.70); RED CELL DISTRIBUTION WIDTH 13.8 % (11.5-14.5); WHITE BLOOD COUNT 9.3 x10^3/uL (4.0-11.0)
[2021-08-19 00:45] LABS: CALCIUM 8.3 mg/dL (8.5-10.1); CREATININE 1.1 mg/dL (0.7-1.3); GFR 71.8; POTASSIUM 3.9 mmol/L (3.5-5.1)
[2021-08-19 00:58] LABS: ALBUMIN 3.4 g/dL (3.4-5.0); DIRECT BILIRUBIN 0.2 mg/dL (0.0-0.2); MAGNESIUM 2.5 mg/dL (1.8-2.4); TOTAL BILIRUBIN 0.5 mg/dL (0.2-1.0)
[2021-08-19 01:29] LABS: BARBITURATES NEG (NEG); BENZODIAZEPINES NEG (NEG); CANNABINOIDS NEG (NEG); COCAINE NEG (NEG); METHADONE NEG (NEG); OPIATES NEG (NEG); PHENCYCLIDINE NEG (NEG)
[2021-08-19 01:39] LABS: AMPHETAMINE/METHAMPHETAMINE NEG (NEG)
[2021-08-19 01:48] LABS: BACTERIA,URINE 0 /HPF (0-FEW); BILIRUBIN,URINE NEG (NEG); CLARITY,URINE CLEAR; COLOR,URINE YELLOW; GLUCOSE,URINE NEG (NEG); NITRITE,URINE NEG (NEG); WBC,URINE 0 /HPF (0-4)
[2021-08-19 01:49] LABS: RBC,URINE 0 /HPF (0-2)
[2021-08-19] MEDS ORDERED: ALBUTEROL SULFATE 8GM INHALER. ONE (04:23)
--- NOTE | 2021-08-19 04:47 | EKG ---
[address] [address] Test Date: 2021-08-19 Test Time: 04:29:26 Pat Name: AKBAR FREITAS Department: Room: Gender: M Solution Analyst: : 1975 Requested By: KALYAN CHAPPELL Order Number: [id number] Reading MD: Measurements Intervals [place] Rate: 85 P: 22 [place]: 148 QRS: 25 QRSD: 88 T: 80 QT: 350 QTc: 417 Interpretive Statements SINUS RHYTHM T ABNORMALITY IN HIGH LATERAL LEADS ABNORMAL ECG RI6.02 No previous ECG available for comparison
--- NOTE | 2021-08-19 04:55 | RAD ---
EXAM: CHEST ONE VIEW. HISTORY: Pneumonia. COVID-19. COMPARISON: 08/17/2021. FINDINGS: A frontal view of the chest is obtained. The inspiration is small. Patchy bilateral airspace infiltrates have progressed mildly since the prio r study. There is no pneumothorax or pleural effusion. The heart is not enlarged. IMPRESSION: 1. Multifocal bilateral infiltrates have progressed mildly. Electronically signed by: Sugar Carlson MD (08/19/2021 4:52 AM) [id number]
[2021-08-19 07:35] VITALS: BP 138/87
[2021-08-19] MEDS ORDERED: APIXABAN 5 MG TABLET. PO SCH ×2 (09:00)
[2021-08-19] MEDS ORDERED: AZITHROMYCIN 250 MG TABLET. PO SCH (09:00)
== END 2021-08-19 08:29 | disposition short-term general hospital (02) ==
LOC: ER 23:11
DX: U07.1 COVID-19 (principal); J12.82 Pneumonia due to coronavirus disease 2019; J96.91 Respiratory failure, unspecified with hypoxia; Z87.442 Personal history of urinary calculi; Z90.49 Acquired absence of other specified parts of digestive tract; Z90.89 Acquired absence of other organs; Z88.8 Allergy status to other drugs, medicaments and biological substances
CPT/HCPCS: 36415; 71045; 80048; 80076; 80307; 81001; 82550; 82803; 83690; 83735; 83880; 84443; 84484; 85025; 85730; 93005; 94640; 96361; 96374; 99291; 99292; J2405; J7120; 94664